=== PATIENT | female | born 1940 | race American Indian/Alaskan Native ===

== ENCOUNTER 2018-09-02 09:24 | Outpatient (CLI) | payer MEDICARE ==
[2018-09-02 10:25] LABS: Basophils # (Auto) 0.1 K/mm3 (0.0-0.1); Basophils % (Auto) 1.1 % (0.0-1.8); Eosinophils # (Auto) 0.2 K/mm3 (0.0-0.4); Eosinophils % (Auto) 3.2 % (0.0-4.3); Hematocrit 23.9 % (30.3-42.9); Hemoglobin 7.2 gm/dl (10.1-14.3); Lymphocytes # (Auto) 1.6 K/mm3 (1.2-5.4); Lymphocytes % (Auto) 25.8 % (13.4-35.0); Mean Corpuscular HGB Conc 30 % (30-34); Mean Corpuscular Volume 73 fl (79-97); Monocytes # (Auto) 0.6 K/mm3 (0.0-0.8); Monocytes % (Auto) 9.6 % (0.0-7.3); Platelet Count 311 K/mm3 (140-440); Red Blood Count 3.28 M/mm3 (3.65-5.03); Red Cell Distribution Width 19.2 % (13.2-15.2)
[2018-09-02 10:33] LABS: Alanine Aminotransferase 11 units/L (7-56); Albumin 3.7 g/dL (3.9-5); BUN/Creatinine Ratio 24; Blood Urea Nitrogen 17 mg/dL (7-17); Calcium 8.7 mg/dL (8.4-10.2); Hemolysis Index 2
== END 2018-09-02 09:25 | disposition home or self-care (01) ==
LOC: LAB 09:24
PROVIDERS: ATTEND Internal Medicine
DX: Z00.01 Encounter for general adult medical examination with abnormal findings (principal); I10 Essential (primary) hypertension; E78.2 Mixed hyperlipidemia; D64.9 Anemia, unspecified
CPT/HCPCS: 36415; 80053; 82306; 82607; 85025

== ENCOUNTER 2018-12-15 08:58 | Outpatient (CLI) | payer MEDICARE ==
[2018-12-15 10:28] LABS: Hematocrit 25.8 % (30.3-42.9); Hemoglobin 8.1 gm/dl (10.1-14.3); Mean Corpuscular HGB Conc 32 % (30-34); Mean Corpuscular Volume 82 fl (79-97); Platelet Count 336 K/mm3 (140-440); Red Blood Count 3.15 M/mm3 (3.65-5.03); Red Cell Distribution Width 18.1 % (13.2-15.2)
[2018-12-15 10:43] LABS: Iron 13 ug/dL (37-170); Total Iron Binding Capacity 300 mcg/dL (250-450)
== END 2018-12-15 08:59 | disposition home or self-care (01) ==
LOC: LAB 08:58
PROVIDERS: ATTEND Internal Medicine
DX: D50.9 Iron deficiency anemia, unspecified (principal); E78.2 Mixed hyperlipidemia
CPT/HCPCS: 36415; 82728; 83550; 84466; 85027

== ENCOUNTER 2019-01-01 06:38 | Outpatient (CLI) | payer MEDICARE ==
--- NOTE | 2019-01-01 09:17 | Cat Scan Report ---
CT CHEST WITHOUT CONTRAST INDICATION / CLINICAL INFORMATION: HEMOPTYSIS. , Coughing, open heart surgery 2010. TECHNIQUE: Axial CT images were obtained through the chest without contrast. Sagittal and coronal reformatted im ages. All CT scans at this location are performed using CT dose reduction for ALARA by means of autom ated exposure control. COMPARISON: None available. FINDINGS: HEART: Heart size is normal with diffuse coronary artery calcifications. Previous CABG changes are no manjula. No pericardial abnormality. THORACIC AORTA: Moderate diffuse calcifications. No aneurysm. MEDIASTINUM and DIXON: An enlarged precarinal lymph node measures 2.3 x 1.6 cm. No obvious hilar adeno toni although no IV contrast was administered. LUNGS: Moderate underlying centrilobular emphysematous changes are identified. A consolidation in the posterior right upper lobe measures 8.0 x 6.2 x 5.5 cm. This lesion is more consistent with a mass t watters pneumonia. There is mild interstitial and airspace prominence surrounding this mass posteriorly a nd superiorly which could represent a postobstructive pneumonia. The left lung is clear. PLEURA: No significant pleural effusion. No pneumothorax. SKELETAL SYSTEM: The bony structures are mildly demineralized. 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 No acute fracture or suspicious bony lesion is identified. UPPER ABDOMEN: No significant abnormality. The adrenal glands are unremarkable. ADDITIONAL FINDINGS: None. IMPRESSION: 8.0 x 6.2 x 5.5 cm masslike lesion in the right upper lobe with surrounding inflammation. Primary emiliana ng neoplasm cannot be excluded. There is also an enlarged precarinal lymph node as described. Moderat e underlying emphysematous changes. Extensive coronary artery and aortic calcifications. Osteopenia and degenerative changes in the spine. Signer Name: Marc Carmichael Jr, MD Signed: 01/01/2019 9:13 AM Workstation Name: [id number]
== END 2019-01-01 06:39 | disposition home or self-care (01) ==
LOC: CT 06:38
PROVIDERS: ATTEND Internal Medicine
DX: I25.10 Atherosclerotic heart disease of native coronary artery without angina pectoris (principal); M47.814 Spondylosis without myelopathy or radiculopathy, thoracic region; M85.88 Other specified disorders of bone density and structure, other site
CPT/HCPCS: 71250

== ENCOUNTER 2019-03-26 09:17 | Outpatient (CLI) | payer MEDICARE ==
[2019-03-26 11:01] LABS: Basophils # (Auto) 0.1 K/mm3 (0.0-0.1); Basophils % (Auto) 1.3 % (0.0-1.8); Eosinophils # (Auto) 0.4 K/mm3 (0.0-0.4); Eosinophils % (Auto) 6.6 % (0.0-4.3); Hematocrit 30.2 % (30.3-42.9); Hemoglobin 9.5 gm/dl (10.1-14.3); Lymphocytes % (Auto) 14.7 % (13.4-35.0); Mean Corpuscular HGB Conc 32 % (30-34); Mean Corpuscular Volume 88 fl (79-97); Monocytes # (Auto) 0.6 K/mm3 (0.0-0.8); Monocytes % (Auto) 9.2 % (0.0-7.3); Platelet Count 334 K/mm3 (140-440); Red Blood Count 3.44 M/mm3 (3.65-5.03); Red Cell Distribution Width 18.6 % (13.2-15.2)
[2019-03-28 03:26] LABS: Iron 26 ug/dL (37-170)
== END 2019-03-26 09:18 | disposition home or self-care (01) ==
LOC: LAB 09:17
PROVIDERS: ATTEND Internal Medicine
DX: D50.9 Iron deficiency anemia, unspecified (principal); D64.9 Anemia, unspecified
CPT/HCPCS: 36415; 82728; 83540; 84466; 85025